=== PATIENT | male | born 1940 | race Caucasian/White ===

== ENCOUNTER 2020-05-01 14:32 | Emergency (ER) | payer OTHER ==
--- NOTE | 2020-05-01 14:56 | PDOC ---
Rapid Medical Evaluation Time Seen by Provider: 05/01/20 14:51 Medical Evaluation: 05/01/20 14:52 Pt with PMH of IDDM, presents for evaluation of facial swelling. He is with his daughter who provides history. States he had upper cheek swelling for three weeks. Started on abx three weeks ago. Tried both PCN and Clinda with worsening symptoms. Told to come by Dr. Skelton Exam: warm intduation to the L cheek Orders: labs, blood cultures, IV PT to proceed to the ER for further evaluation Discharge Disposition - Diagnosis Facial swelling - Referrals - Patient Instructions - Post Discharge Activity
[2020-05-01 15:04] VITALS: BP 128/54; PULSE 62; TEMP 97; BMI 30.2
--- NOTE | 2020-05-01 15:16 | PDOC ---
History of Present Illness - General Chief Complaint: Edema Stated Complaint: SWOLLEN FACE Time Seen by Provider: 05/01/20 14:51 - History of Present Illness Initial Comments: 05/01/20 15:29 80 y.o. M PMHx CAD (x2 stents), CKD, diabetes, dementia presenting due to indurated mass located around L facial bone & upper gums 2 cm x 2cm in size. Patient states he has had it for 3 weeks, no fevers, tenderness/pain or drainage. No recent dental procedures, diet has been soft foods. He was prescribed penicillin then clindamycin both of which did not resolve the mass. PCP: Dr. Chew PMHx: CAD (x2 stents), CKD, diabetes, dementia Meds: In Chart Allergies: ELLIS-I, donepezil CT scan: Pending 05/01/20 15:43 Is this a multiple visit Asthma Patient?: No Timing/Duration: changing over time Severity: moderate Past History - Medical History Allergies/Adverse Reactions: Allergies Allergy/AdvReac Type Severity Reaction Status Date / Time ELLIS Inhibitors Allergy Verified 05/01/20 15:01 donepezil [From Aricept] Allergy Verified 05/01/20 15:01 COPD: No - Psycho-Social/Smoking History Smoking History: Former smoker Have you smoked in the past 12 months: No Information on smoking cessation initiated: No Review of Systems - Review of Systems Able to Perform ROS?: Yes Is the patient limited Ghanaian proficient: No Constitutional: No: Chills, Fever HEENTM: Yes: Other (L sides mass upper gums/facial region). No: Blurred Vision, Double Vision Respiratory: No: Cough, Shortness of Breath Cardiac (ROS): No: Chest Pain, Lightheadedness ABD/GI: No: Constipated, Diarrhea, Nausea, Vomiting : No: Burning, Dysuria Neurological: No: Headache, Numbness, Tremors, Dizziness Hematologic/Lymphatic: No: Anemia, Easy Bleeding *Physical Exam - Vital Signs Last Vital Signs Temp Pulse Resp BP Pulse Ox 97 F L 62 18 128/54 L 94 L 05/01/20 14:59 05/01/20 14:59 05/01/20 14:59 05/01/20 14:59 05/01/20 14:59 - Physical Exam General Appearance: Yes: Nourished, Appropriately Dressed. No: Apparent Distress HEENT: positive: Other (Indurated mass located around L upper gums, nasal bridge and facial bone region. Mass measures 2cm x 2cm, is nontender and firm. The mass has no areas of drainage or discoloration. When viewed from the oropharynx the L side of the mouth/gums are swollen compared to the R.) Respiratory/Chest: positive: Lungs Clear, Normal Breath Sounds. negative: Chest Tender Cardiovascular: positive: Regular Rhythm, Regular Rate. negative: JVD, Murmur Gastrointestinal/Abdominal: positive: Normal Bowel Sounds, Flat, Soft. neg ative: Tender, Organomegaly, Distended, Guarding, Rebound Musculoskeletal: positive: Normal Inspection. negative: CVA Tenderness Integumentary: positive: Normal Color, Dry, Warm Neurologic: positive: Fully Oriented, Alert, Normal Mood/Affect, Normal Response ED Treatment Course - LABORATORY CBC & Chemistry Diagram: 05/01/20 15:30 05/01/20 15:30 Medical Decision Making - Medical Decision Making 05/01/20 15:44 80 y.o. M PMHx CAD (x2 stents), CKD, diabetes, dementia presenting due to R facial swelling for 3 weeks. DDx: abscess, soft tissue mass Labs: WBC 7.4, Cr 1.6, Glucose 452, Alk Phos 129 CT: Pending EKG: Sinus ani w/ 1st degree block, RBBB, Qtc 426, rate 58bpm Dispo: Signed out to Dr. Plunkett, D/C pending CT scan 05/01/20 17:33 Discharge - Discharge Information Problems reviewed: Yes Clinical Impression/Diagnosis: Facial swelling, Soft tissue lesion Condition: Stable Disposition: HOME - Follow up/Referral Referrals: ON STAFF,NOT [Primary Care Provider] - - Patient Discharge Instructions Additional Instructions: Today you were seen for swelling of your face. Your blood works are all normal, and you do not appear to have an infection in your face. However, your CT scan shows a lesion in your left maxillary sinus that is concerning for possible ca ncer. We spoke to Dr. Chew, who recommends that you follow-up with an oral surgeon for further care. You should go to [facility], [place], [facility], or [facility] for follow-up and further dental care. We have given you a copy of your CT scan and report to take with you. If you have any worsening symptoms, mouth pain, difficulty breathing, or any other new or concerning symptoms, please return to the emergency room. - Post Discharge Activity
[2020-05-01 16:14] LABS: BASO % 0.9 % (0-2.0); EOS % 3.2 % (0-4.5); HEMATOCRIT 41.6 % (35.4-49); HEMOGLOBIN 13.8 GM/dL (11.7-16.9); LYMPH % 16.5 % (8-40); MCH 30.2 pg (25.7-33.7); MCHC 33.2 g/dl (32.0-35.9); MEAN CELL VOLUME 90.8 fl (80-96); MONO % 8.7 % (3.8-10.2); NEUT % 70.7 % (42.8-82.8); PLATELET COUNT 145 K/MM3 (134-434); RBC 4.58 M/mm3 (4.00-5.60); RDW 12.3 % (11.9-15.9); WHITE BLOOD COUNT 7.4 K/mm3 (4.0-10.0)
--- NOTE | 2020-05-01 16:50 | PDOC ---
Documentation entered by Cheikh Arias SCRIBE, acting as scribe for Keagan Lugo MD. Keagan Lugo MD: This documentation has been prepared by the Hugo reeves Xhesika, SCRIBE, under my direction and personally reviewed by me in its entirety. I confirm that the documentation accurately reflects all work, treatment, procedures, and medical decision making performed by me. Attending Attestation - Resident Resident Name: Clyde Andrews - ED Attending Attestation I have performed the following: I have examined & evaluated the patient, The case was reviewed & discussed with the resident, I agree w/resident's findings & plan, Exceptions are as noted - HPI HPI: 05/01/20 15:47 The patient is a 80y/o M with a PMH of CAD (x2 stents), CKD, diabetes, dementia who presents to the ED for L facial bone mass & upper gums mass [id number]. Pt states he was prescribed penicillin then clindamycin, with no improvement of symptoms. Patient denies fevers, tenderness/pain or drainage from site. Denies any dental procedures. Denies CP, SOB, headache, N/V/D. Denies focal weakness/numbness, dizziness, blurry vision, discharge. Allergies: Donepezil, ELLIS inhibitors - Physicial Exam PE: 05/01/20 16:37 Agree with resident exam - Medical Decision Making 05/01/20 16:37 80yo M presents to the ED with L sided facial swelling with no improvement s/p PCN and clinda Vitals wnl No systemic signs of infection DDx includes abscess vs cellulitis vs malignancy Plan: -labs -CT facial w contrast (if renal fx allows) -consider IV abx Case signed out to evening attending for f/u on pending studies, mgmt, dispo Discharge - Discharge Information Problems reviewed: Yes Clinical Impression/Diagnosis: Facial swelling - Follow up/Referral - Patient Discharge Instructions - Post Discharge Activity
[2020-05-01 16:53] LABS: ALBUMIN 3.7 g/dl (3.4-5.0); BILIRUBIN,TOTAL 0.7 mg/dL (0.2-1); BLOOD UREA NITROGEN 19.2 mg/dL (7-18); CALCIUM 9.4 mg/dL (8.5-10.1); CREATININE 1.6 mg/dL (0.55-1.3); POTASSIUM 4.8 mmol/L (3.5-5.1); TOT PROT 8.1 g/dl (6.4-8.2)
[2020-05-01] MEDS ORDERED: INSULIN REGULAR HUMAN 100 UNITS/ML *VIAL SQ ONE (17:41)
[2020-05-01] MEDS ORDERED: LACTATED RINGERS SOLUTION 1000 ML INFUS.BAG IV ONE (17:42)
[2020-05-01 19:02] LABS: EPI CELLS 1 /uL (0-25.1); HYALINE CASTS 0 /uL (0-3.1); URINE APPEARANCE CLEAR; URINE BACTERIA 6 /uL (0-1359); URINE BILIRUBIN NEGATIVE (NEGATIVE); URINE COLOR YELLOW; URINE GLUCOSE (UA) 3+ (NEGATIVE); URINE KETONE NEGATIVE (NEGATIVE); URINE LEUK ESTERASE NEGATIVE (NEGATIVE); URINE NITRITE NEGATIVE (NEGATIVE); URINE PROTEIN 1+ (NEGATIVE); URINE RBC 3 /uL (0-23.9); URINE UROBILINOGEN 0.2 mg/dL (0.2-1.0); URINE WBC 1 /uL (0-25.8)
--- NOTE | 2020-05-01 19:08 | PDOC ---
*Physical Exam - Vital Signs Last Vital Signs Temp Pulse Resp BP Pulse Ox 97 F L 62 18 128/54 L 94 L 05/01/20 14:59 05/01/20 14:59 05/01/20 14:59 05/01/20 14:59 05/01/20 14:59 ED Treatment Course - LABORATORY CBC & Chemistry Diagram: 05/01/20 15:30 05/01/20 15:30 - ADDITIONAL ORDERS Additional order review: Laboratory Results 05/01/20 05/01/20 05/01/20 17:55 15:30 15:30 Sodium 135 L Potassium 4.8 Chloride 100 Carbon Dioxide 28 Anion Gap 7 L BUN 19.2 H Creatinine 1.6 H Est GFR (CKD-EPI)AfAm 47.12 Est GFR (CKD-EPI)NonAf 40.66 Random Glucose 452 H* Lactic Acid 2.1 H Calcium 9.4 Total Bilirubin 0.7 AST 32 ALT 38 Alkaline Phosphatase 129 H Total Protein 8.1 Albumin 3.7 Urine Color Yellow Urine Appearance Clear Urine pH 5.0 Ur Specific [place] 1.020 Urine Protein 1+ H Urine Glucose (UA) 3+ H Urine Ketones Negative Urine Blood Negative Urine Nitrite Negative Urine Bilirubin Negative Urine Urobilinogen 0.2 Ur Leukocyte Esterase Negative Urine WBC (Auto) 1 Urine RBC (Auto) 3 Urine Casts (Auto) 0 U Epithel Cells (Auto) 1 Urine Bacteria (Auto) 6 05/01/20 15:30 RBC 4.58 MCV 90.8 MCHC 33.2 RDW 12.3 MPV 11.0 Neutrophils % 70.7 Lymphocytes % 16.5 Monocytes % 8.7 Eosinophils % 3.2 Basophils % 0.9 - Medications Given in the ED: ED Medications Discontinued Medications Generic Name Dose Route Start Last Admin Trade Name Freq PRN Reason Stop Dose Admin Insulin Human Regular 10 units 05/01/20 17:41 05/01/20 18:05 Novolin R Vial *For Ivpush Or Iv Drip Only* SQ 05/01/20 17:42 10 units ONCE ONE Administration Lactated Ringer's 1,000 ml 05/01/20 17:42 05/01/20 18:08 Lactated Ringers Solution IV 05/01/20 17:43 1,000 ml ONCE ONE Administration Medical Decision Making - Medical Decision Making 05/01/20 19:03 Signed out to my by Dr. Andrews Left buccal vestibule swelling, indurated mass last 3 weeks Wears dentures ? Facial infection vs. abscess Trialled PCN, clindamycin, failed outpatient tx Sent by PMD Dr. Moises Chew WBC normal Cr 1.6, no IV contrast [] Non-con CT facial bones [] evaluate and dispo based on results 05/01/20 22:18 CT read shows left maxillary soft tissue lesion eroding into bone, concerning for neoplastic disease. Spoke to Dr. Chew, can discharge and refer to [facility]. Discussed with family and patient at bedside, who understand need for referral to [facility]. Patient in NAD and feeling well. Stable for d/c home. Discharge - Discharge Information Problems reviewed: Yes Clinical Impression/Diagnosis: Facial swelling, Soft tissue lesion Condition: Stable Disposition: HOME - Follow up/Referral Referrals: ON STAFF,NOT [Primary Care Provider] - - Patient Discharge Instructions Additional Instructions: Today you were seen for swelling of your face. Your blood works are all normal, and you do not appear to have an infection in your face. However, your CT scan shows a lesion in your left maxillary sinus that is concerning for possible cancer. We spoke to Dr. Chew, who recommends that you follow-up with an oral surgeon for further care. You should go to [facility], [place], [facility], or [facility] for follow-up and further dental care. We have given you a copy of your CT scan and report to take with you. If you have any worsening symptoms, mouth pain, difficulty breathing, or any other new or co ncerning symptoms, please return to the emergency room. - Post Discharge Activity
--- NOTE | 2020-05-02 10:16 | EKG ---
Test Reason : Blood Pressure : / mmHG Vent. Rate : 058 BPM Atrial Rate : 058 BPM P-R Int : 218 ms QRS Dur : 126 ms QT Int : 434 ms P-R-T Axes : 039 084 092 degrees QTc Int : 426 ms SINUS BRADYCARDIA WITH SINUS ARRHYTHMIA WITH 1ST DEGREE A-V BLOCK RIGHT BUNDLE BRANCH BLOCK ABNORMAL ECG NO PREVIOUS ECGS AVAILABLE Confirmed by MD Kobi, Pranav ([id number]) on 05/02/2020 10:16:03 AM Referred By: Confirmed By:Pranav Peace MD
== END 2020-05-01 22:45 | disposition home or self-care (01) ==
LOC: JER 14:32
DX: R22.0 Localized swelling, mass and lump, head (principal); M79.9 Soft tissue disorder, unspecified
CPT/HCPCS: 36415; 70450-TC; 70486-TC; 80053; 81003; 82962; 83605; 85025; 87040; 87086; 93005; 93010; 99284-25; U0003